=== PATIENT | male | born 1985 | race Caucasian/White ===

== ENCOUNTER 2019-12-18 23:07 | Emergency (ER) | payer OTHER ==
--- NOTE | 2019-12-18 23:17 | ED Physician Documentation ---
PD HPI SYNCOPE - Stated complaint Stated Complaint: SYNCOPE/HEAD PX - Chief complaint Chief Complaint: Neuro - History obtained from History obtained from: Patient - History of Present Illness Witnessed: Unwitnessed Timing - onset: Enter time (13:00), Today Preceding symptoms: Diaphoresis, Nausea / vomiting (nausea), Light headed, Generalized weakness Associated symptoms: Diaphoresis, Nausea / vomiting (nausea but no vomiting). No: Seizure, Incontinant of urine, Headache, Vision changes, Chest pain, Palpitations, Dyspnea, Abdominal pain Contributing factors: None Injury occurred: Fell Pain level max: 0 Pain level now: 0 Similar symptoms before: Has not had sx before Recently seen: Not recently seen - Additional information Additional information: patient was at work (on duty at [employer]), at 1 pm today as he was finishing washing his hands he had sudden onset of dizziness/lightheadedness, generalized weakness, diaphoresis, nausea. He says he fell to the ground, and although he initially didn't recall falling, he says he subsequently recalls falling and thus does not think he lost consciousness at that time. He continued to feel generalized weakness and slowly was able to get into a chair. He tried to stand up and then had LOC, woke up on ground. Denies injury. He gradually regained full strength and was able to get up and ambulate; he finished his shift before coming to ED for evaluation. He notes mild RUE paresthesias since the event Review of Systems Eyes: reports: Reviewed and negative Ears: denies: Tinnitus/ringing Cardiac: reports: Reviewed and negative Respiratory: reports: Reviewed and negative GI: reports: Nausea. denies: Abdominal Pain, Vomiting : denies: Incontinent Musculoskeletal: reports: Reviewed and negative Neurologic: reports: Numbness (paresthesias RUE), Syncope, LOC. denies: Generalized weakness, Focal weakness, Headache, Head injury PD PAST MEDICAL HISTORY - Past Medical History Past Medical History: No - Past Surgical History Past Surgical History: No - Present Medications Home Medications: Ambulatory Orders Medication Instructions Recorded Confirmed No Known Home Medications 12/18/19 12/18/19 - Allergies Allergies/Adverse Reactions: Allergies Allergy/AdvReac Type Severity Reaction Status Date / Time Penicillins Allergy Unknown Verified 12/18/19 23:14 PD ED PE NORMAL - Vitals Vital signs reviewed: Yes - General General: Alert and oriented X 3, No acute distress, Well developed/nourished - HEENT HEENT: Atraumatic, PERRL, EOMI, Moist mucous membranes - Neck Neck: No bony TTP - Cardiac Cardiac: RRR, No murmur, No gallop, No rub - Respiratory Respiratory: No respiratory distress, Clear bilaterally - Abdomen Abdomen: Soft, Non tender - Extremities Extremities: No tenderness to palpate, Normal ROM s pain - Neuro Neuro: Alert and oriented X 3, 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, No motor deficit, No sensory deficit (LTS intact and equal BUE), Normal speech Eye Opening: Spontaneous Motor: Obeys Commands Verbal: Oriented GCS Score: 15 Results - Vitals Vitals: Vital Signs - 24 hr 12/18/19 12/19/19 12/19/19 23:11 00:04 00:11 Temperature 36.7 C Heart Rate 89 78 Respiratory 16 17 16 Rate Blood Pressure 125/74 117/73 O2 Saturation 98 98 12/19/19 12/19/19 12/19/19 01:26 01:57 02:05 Temperature Heart Rate 68 Respiratory 16 17 16 Rate Blood Pressure 124/78 O2 Saturation 98 12/19/19 02:20 Temperature Heart Rate Respiratory 16 Rate Blood Pressure O2 Saturation Oxygen O2 Source Room air - EKG (time done) No standard instances Rate: Rate (enter#) (63) Rhythm: NSR [place]: LAD (borderline LAD) Intervals: Normal RI QRS: Normal Ischemia: Normal ST segments, Q waves (V1, V2) - Labs Labs: Laboratory Tests 12/18/19 12/19/19 12/19/19 23:20 00:30 00:30 WBC 8.6 RBC 4.74 Hgb 14.5 Hct 43.0 MCV 90.7 MCH 30.6 MCHC 33.7 RDW 12.3 Plt Count 225 MPV 10.6 Neut # (Auto) 5.2 Lymph # (Auto) 2.1 [place] # (Auto) 0.8 Eos # (Auto) 0.4 Baso # (Auto) 0.1 Absolute Nucleated RBC 0.00 Nucleated RBC % 0.0 Sodium 139 Potassium 3.6 Chloride 102 Carbon Dioxide 28 Anion Gap 9.0 BUN 18 Creatinine 0.9 Estimated GFR (MDRD) 98 Glucose 96 Calcium 9.3 Urine Color YELLOW Urine Clarity CLEAR Urine pH 7.0 Ur Specific [place] 1.020 Urine Protein NEGATIVE Urine Glucose (UA) NEGATIVE Urine Ketones NEGATIVE Urine Occult Blood NEGATIVE Urine Nitrite NEGATIVE Urine Bilirubin NEGATIVE Urine Urobilinogen 0.2 (NORMAL) Ur Leukocyte Esterase NEGATIVE Ur Microscopic Review NOT INDICATED Urine Culture Comments NOT INDICATED - Rads (name of study) CT head Radiology: Prelim report reviewed, See rad report chest xray Radiology: Prelim report reviewed, See rad report PD MEDICAL DECISION MAKING - ED course Complexity details: reviewed results, re-evaluated patient, considered differential, d/w patient Departure - Departure Disposition: 01 Home, Self Care Clinical Impression: Syncope Qualifiers: Syncope type: unspecified Qualified Code(s): R55 - Syncope and collapse Condition: Good Instructions: ED Fainting Unkn Cause Follow-Up: JENNIFFER Jacob [Provider Group] - Within 1 week Comments: Your tests are normal although Q waves were seen on your EKG; this is, by definition, not an acute finding. In other words, in the absence of other abnormalities on the EKG, Q waves do not reflect an abnormality that happened tonight. Typically, Q waves are seen if someone has had a heart attack in the past, which, as we discussed, would be exceptionally unusual for your age in the absence of risk factors for cardiac disease. The finding might not even represent any underlying problem or abnormality. As we discussed, you should follow up with your primary care provider regarding this finding as well as for the problem you had tonight (passing out). Discharge Date/Time: 12/19/19 02:20
[2019-12-19 00:42] LABS: BILIRUBIN,URINE NEGATIVE (NEGATIVE); CLARITY,URINE CLEAR (CLEAR); GLUCOSE, URINE (UA) NEGATIVE (NEGATIVE); KETONES,URINE (UA) NEGATIVE (NEGATIVE); LEUKOCYTE ESTERASE, URINE NEGATIVE (NEGATIVE); NITRITE,URINE NEGATIVE (NEGATIVE); OCCULT BLOOD,URINE NEGATIVE (NEGATIVE); PROTEIN,URINE NEGATIVE (NEGATIVE); UROBILINOGEN,URINE 0.2 (NORMAL) E.U./dL (NORMAL)
[2019-12-19 00:44] LABS: BASOPHILS # (AUTO) 0.1 10^3/uL (0.0-0.1); BASOPHILS % (AUTO) 0.8 %; EOSINOPHILS # (AUTO) 0.4 10^3/uL (0.0-0.7); EOSINOPHILS % (AUTO) 5.1 %; HGB - HEMOGLOBIN 14.5 g/dL (14.0-18.0); LYMPHOCYTES # (AUTO) 2.1 10^3/uL (1.5-3.5); LYMPHOCYTES % (AUTO) 24.7 %; MEAN CORPUSCULAR HEMOGLOBIN 30.6 pg (27.0-31.0); MEAN CORPUSCULAR HGB CONC 33.7 g/dL (32.0-36.0); MEAN CORPUSCULAR VOLUME 90.7 fL (80.0-94.0); MEAN PLATELET VOLUME 10.6 fL (7.4-11.4); MONOCYTES # (AUTO) 0.8 10^3/uL (0.0-1.0); NEUTROPHILS # (AUTO) 5.2 10^3/uL (1.5-6.6); NEUTROPHILS % (AUTO) 60.1 %; PLT - PLATELET COUNT 225 10^3/uL (130-450); RED BLOOD COUNT 4.74 10^6/uL (4.70-6.10); RED CELL DISTRIBUTION WIDTH 12.3 % (12.0-15.0); WHITE BLOOD COUNT 8.6 x10^3/uL (4.8-10.8)
[2019-12-19 00:52] LABS: CALCIUM 9.3 mg/dL (8.5-10.3); CREATININE 0.9 mg/dL (0.6-1.2)
[2019-12-19 01:57] VITALS: BP 124/78
--- NOTE | 2019-12-19 08:23 | CT Report ---
PROCEDURE: HEAD WO INDICATIONS: syncope, head injury, right arm numbness TECHNIQUE: Noncontrast 4.5 mm thick angled axial sections acquired from the foramen magnum to the vertex. For r adiation dose reduction, the following was used: automated exposure control, adjustment of mA and/or kV according to patient size. COMPARISON: Correlation is made with the accompanying maxillofacial CT and chest x-ray, 12/19/2019 FINDINGS: Image quality: DrMynor solano CSF spaces: Basal cisterns are patent. No extra-axial fluid collections. Ventricles are normal in size and shape. Brain: No midline shift. No intracranial masses or hemorrhage. [place]-white matter interface is norm al. Skull and face: Calvarium and visualized facial bones are intact, without suspicious lesions. Sinuses: There is a small air-fluid levels seen within the left maxillary sinus. Visualized sinuses and mastoids are otherwise clear. IMPRESSION: No significant intracranial abnormality is seen. Note: No significant discrepancy from the preliminary report. Reviewed by: Bravo Zambrano MD on 12/19/2019 7:22 AM GRICELDA Approved by: Bravo Zambrano MD on 12/19/2019 7:22 AM GRICELDA Station ID: [id number]
--- NOTE | 2019-12-19 08:25 | CT Report ---
PROCEDURE: MAXILLOFACIAL WO INDICATIONS: syncope, right supraorbital injury TECHNIQUE: Noncontrast 1.5 mm thick axial images acquired from the mandible through the frontal sinuses, with co melissa and sagittal reformatting. For radiation dose reduction, the following was used: automated ex posure control, adjustment of mA and/or kV according to patient size. COMPARISON: Correlation is made with the accompanying head CT and chest radiograph dated 12/19/2019. FINDINGS: Image quality: Excellent. Bones and teeth: Orbital hernandez are intact. Sinus hernandez show no fracture or deformity. Nasal bones and septum are intact. Visualized portions of the mandible demonstrate no fractures or subluxation. Zygomatic arches are intact. Pterygoid plates are intact. Visualized portions of the skull base an d auditory canals are intact. Sinuses: Paranasal sinuses are aerated, without fluid levels, mucosal thickening, or mucoceles. [place] air cells are aerated. Soft tissues: Mild asymmetric soft tissue swelling can be seen within the right supraorbital region. No enlarged lymph nodes. No soft tissue lacerations or debris. Vascular: Visualized vascular structures appear normal in the absence of contrast. Bony vascular fo ramina and canals are intact. IMPRESSION: There is mild soft tissue swelling seen within the right supraorbital region, which is c onsistent with the given history. No displaced fractures are seen. Note: No significant discrepancy from the preliminary report, although the preliminary report did not mention the mild right supraorbital soft tissue swelling. Reviewed by: Bravo Zambrano MD on 12/19/2019 7:24 AM GRICELDA Approved by: Bravo Zambrano MD on 12/19/2019 7:24 AM MEBEATRICE Station ID: [id number]
--- NOTE | 2019-12-19 08:27 | XRAY Report ---
PROCEDURE: Chest 2 View X-Ray INDICATIONS: syncope TECHNIQUE: 2 view(s) of the chest. COMPARISON: Correlation is made with the accompanying head CT and maxillofacial CT dated 12/19/2019. FINDINGS: Surgical changes and devices: None. Lungs and pleura: No pleural effusions or pneumothorax. Lungs are clear. Mediastinum: Mediastinal contours are normal. Heart size is normal. Bones and chest wall: No suspicious bony abnormalities. Mild dextroconvex scoliotic curvature is see n. Soft tissues appear unremarkable. IMPRESSION: No acute cardiopulmonary process is seen. Note: No significant discrepancy from the preliminary report. Reviewed by: Bravo Zambrano MD on 12/19/2019 7:26 AM GRICELDA Approved by: Bravo Zambrano MD on 12/19/2019 7:26 AM GRICELDA Station ID: [id number]
== END 2019-12-19 02:20 | disposition home or self-care (01) ==
LOC: ED 23:07
DX: R55 Syncope and collapse (principal); R53.1 Weakness; R20.2 Paresthesia of skin; W19.XXXA Unspecified fall, initial encounter; Y93.E1 Activity, personal bathing and showering; Y92.89 Other specified places as the place of occurrence of the external cause; Y99.1 Military activity
CPT/HCPCS: 36415; 70450; 70486; 71046; 80048; 81001; 81003; 85025; 87086; 93005; 99284